=== PATIENT | female | born 1950 | race Caucasian/White ===

== ENCOUNTER 2017-10-15 21:30 | Emergency (ER) | payer OTHER ==
[2017-10-15 22:38] LABS: Absolute Lymphocytes (CBC) 2.6 K/uL (0.7-4.9); Absolute Monocytes 0.8 K/uL (0.1-1.3); Absolute Neutrophil 3.8 K/uL (1.8-8.0); Basophils % 0.5 % (0-1.3); Eosinophils % 4.6 % (0-4.4); Hematocrit 39.4 % (36.0-45.0); Lymphocytes % 33.6 % (15.3-44.8); MCH 28.5 pg (27.0-35.0); MCV 84.3 fL (80-100); MPV 8.7 fL (7.6-11.3); Protime INR 0.98; RBC Red Blood Cell Count 4.68 M/uL (3.86-4.86)
[2017-10-15 22:46] LABS: Potassium 3.3 mEq/L (3.6-5.0)
[2017-10-15 22:52] LABS: Albumin 4.4 g/dL (3.2-5.5); Bilirubin Direct 0.1 mg/dL (0-0.2); Bilirubin Total 0.4 mg/dL (0.3-1.2); Magnesium 1.9 mg/dL (1.8-2.5); Protein, Total 7.3 g/dL (6.0-8.3)
[2017-10-15 22:55] LABS: CKMB Creatine Kinase MB 1.6 ng/ml (0.3-4.0)
[2017-10-15 23:24] LABS: Thyroid Stimulating Hormone 0.04 uIU/mL (0.34-5.60)
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
--- NOTE | 2017-10-16 06:54 | EKG ---
Test Date: 2017-10-15 Test Time: 22:02:54 Concert Manager: MEASUREMENT RESULTS: Intervals: Rate: 100 ND: 164 QRSD: 82 QT: 346 QTc: 446 [place]: P: 53 ND: 164 QRS: 70 T: 45 INTERPRETIVE STATEMENTS: Normal sinus rhythm Possible Left atrial enlargement RSR' or QR pattern in V1 suggests right ventricular conduction delay Borderline ECG Compared to ECG 08/23/2017 10:50:55 RSR' in V1 or V2 now present Sinus tachycardia no longer present Ventricular premature complex(es) no longer present Electronically Signed On 10-16-17 06:53:[address]
--- NOTE | 2017-10-16 08:01 | RAD REPORT ---
[facility]13 [facility] CLINICAL HISTORY: Chest pain COMPARISON: August 2017 FINDINGS: The lungs are hyperaerated. Bilateral interstitial opacities are seen. The heart is normal size Old rib fractures are present IMPRESSION: COPD Bilateral interstitial lung opacities probably represent a mild pneumonitis superimposed over chronic changes.
== END 2017-10-16 00:18 | disposition home or self-care (01) ==
LOC: ER 21:30
DX: R07.9 Chest pain, unspecified (principal); I10 Essential (primary) hypertension; J44.9 Chronic obstructive pulmonary disease, unspecified; Z88.0 Allergy status to penicillin
CPT/HCPCS: 36415; 71045; 80048; 80076; 82550; 82553; 83735; 83880; 84439; 84443; 84484; 85025; 85610; 85730; 93005; 99285

== ENCOUNTER 2017-11-10 21:30 | Emergency (ER) | payer OTHER ==
[2017-11-10 23:02] LABS: Urine Blood 1+ (NEG); Urine Glucose NEGATIVE (NEG); Urine Protein NEGATIVE (NEG); Urine Specific Gravity <1.005 (1.005-1.030)
[2017-11-10 23:36] LABS: Absolute Lymphocytes (CBC) 2.4 K/uL (0.7-4.9); Absolute Monocytes 0.6 K/uL (0.1-1.3); Absolute Neutrophil 2.5 K/uL (1.8-8.0); Basophils % 1.3 % (0-1.3); Eosinophils % 8.2 % (0-4.4); Hematocrit 39.3 % (36.0-45.0); Lymphocytes % 39.3 % (15.3-44.8); MCH 28.2 pg (27.0-35.0); MCV 85.4 fL (80-100); Monocytes % 9.2 % (3.3-12.3)
[2017-11-10 23:40] LABS: Protime INR 0.96
[2017-11-10 23:44] LABS: Potassium 3.8 mEq/L (3.6-5.0)
[2017-11-10 23:50] LABS: Bilirubin Direct 0.1 mg/dL (0-0.2); Bilirubin Total 0.5 mg/dL (0.3-1.2); Protein, Total 6.9 g/dL (6.0-8.3)
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
[2017-11-11] MEDS ORDERED: AMLODIPINE 5 MG TAB ONE (00:20)
--- NOTE | 2017-11-11 06:47 | EKG ---
Test Date: 2017-11-10 Test Time: 23:07:42 Imaging Engineer: RAND MEASUREMENT RESULTS: Intervals: Rate: 53 OR: 162 QRSD: 84 QT: 440 QTc: 412 Avella: P: 57 OR: 162 QRS: 68 T: 50 INTERPRETIVE STATEMENTS: Sinus bradycardia Otherwise normal ECG Compared to ECG 10/15/2017 22:02:54 Sinus rhythm no longer present Electronically Signed On 11-11-17 06:46:13 CDT by Angelo Izquierdo
--- NOTE | 2017-11-11 10:31 | RAD REPORT ---
EXAM DESCRIPTION: RAD - Chest Single View - 11/10/2017 11:20 pm CLINICAL HISTORY: Hypertension, shortness of breath COMPARISON: October 15 TECHNIQUE: AP portable chest image was obtained 2317 hour . FINDINGS: Chronic interstitial lung disease is present similar to comparison. No focal mass or conso lidation. No significant superimposed interstitial edema or infiltrate. Heart and vasculature are nor mal. No measurable pleural effusion and no pneumothorax. No acute bone finding. Thoracic spine and bi lateral shoulder joint degenerative changes are present and stable. No acute aortic findings suspecte d. IMPRESSION: Chronic interstitial lung disease similar to comparison. No acute finding.
== END 2017-11-11 00:32 | disposition home or self-care (01) ==
LOC: ER 21:30
DX: I10 Essential (primary) hypertension (principal); J44.9 Chronic obstructive pulmonary disease, unspecified; F17.200 Nicotine dependence, unspecified, uncomplicated; Z88.0 Allergy status to penicillin; Z87.820 Personal history of traumatic brain injury
CPT/HCPCS: 36415; 71045; 80048; 80076; 81003; 82550; 82553; 83735; 83880; 84484; 85025; 85610; 85730; 87086; 87088; 93005; 99284

== ENCOUNTER 2019-04-18 17:25 | Emergency (ER) | payer OTHER ==
[2019-04-18] MEDS ORDERED: BUPIVACAINE 0.5% PF 10 ML VIAL ONE (18:51)
[2019-04-18] MEDS ORDERED: LIDOCAINE 1% MPF 5 ML VIAL ONE (18:51)
--- NOTE | 2019-04-18 19:25 | RAD REPORT ---
EXAM DESCRIPTION: RAD - Foot Left 3 View - 04/18/2019 7:19 pm CLINICAL HISTORY: Left Foot pain FINDINGS: No fracture or dislocation is seen. Osteoporosis. No bony destructive lesion noted
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
[2019-04-18] MEDS ORDERED: HYDROCODONE/APAP 5/325 MG TAB ONE (20:59)
[2019-04-18] MEDS ORDERED: IBUPROFEN 400 MG TAB ONE (20:59)
[2019-04-18 21:42] VITALS: TEMP 98.1; O2SAT 98
[2019-04-18 21:43] VITALS: BP 123/92
== END 2019-04-18 21:34 | disposition home or self-care (01) ==
LOC: ER 17:25
PROC: 0JQQ0ZZ Repair Right Foot Subcutaneous Tissue and Fascia, Open Approach (ICD-10-PCS; principal; 2019-04-18)
DX: S91.202A Unspecified open wound of left great toe with damage to nail, initial encounter (principal); M79.675 Pain in left toe(s); W50.0XXA Accidental hit or strike by another person, initial encounter; Y93.89 Activity, other specified; Y92.9 Unspecified place or not applicable; Z88.0 Allergy status to penicillin; Z72.0 Tobacco use
CPT/HCPCS: 99284

== ENCOUNTER 2021-03-30 15:44 | Emergency (ER) | payer OTHER ==
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
[2021-03-30 18:22] VITALS: BP 116/66; TEMP 97.6; O2SAT 97
== END 2021-03-30 18:02 | disposition left against medical advice (07) ==
LOC: ER 15:44
DX: Z53.21 Procedure and treatment not carried out due to patient leaving prior to being seen by health care provider (principal)
CPT/HCPCS: 99281